=== PATIENT | female | born 1990 | race Caucasian/White ===

== ENCOUNTER 2018-07-11 11:41 | Emergency (ER) | payer OTHER ==
[~2018-07-11] VITALS: Ht 157.5 cm; Wt 77.3 kg
[2018-07-11] MEDS ORDERED: DiphenhydrAMINE HCL 25 MG CAPSULE PO ONE (12:45)
[2018-07-11] MEDS ORDERED: DiphenhydrAMINE/ZINC ACET 30 GM CREAM TP ONE (12:45)
[2018-07-11] MEDS ORDERED: PredniSONE 20 MG TABLET PO ONE (12:45)
[2018-07-11 13:28] VITALS: BP 115/71
== END 2018-07-11 13:29 | disposition home or self-care (01) ==
LOC: EMS 11:42
DX: L50.0 Allergic urticaria (principal); Z98.51 Tubal ligation status
CPT/HCPCS: 99284; J7512